=== PATIENT | female | born 1965 | race American Indian/Alaskan Native ===

== ENCOUNTER 2016-11-12 07:05 | Emergency (ER) | payer OTHER ==
[2016-11-12 07:13] VITALS: BP 173/93; PULSE 97; RESP 18; TEMP 97.7; O2SAT 100
--- NOTE | 2016-11-12 07:59 | C.PDOC ---
History Of Present Illness 50-year-old female, presents to the emergency department w/ complaints of non- traumatic right-lower back pain that started a few days ago. Denies nausea/ vomiting, numbness/weakness, tingling, bowel/bladder incontinence, symptoms, or any other associated symptoms. No other complaints at this time. Time Seen by Provider: 11/12/16 07:17 Chief Complaint (Nursing): Back Pain History Per: Patient History/Exam Limitations: no limitations Past Medical History Reviewed: Historical Data, Nursing Documentation, Vital Signs Vital Signs: Last Vital Signs Temp 97.7 F 11/12/16 07:12 Pulse 97 H 11/12/16 07:12 Resp 18 11/12/16 07:12 BP 173/93 H 11/12/16 07:12 Pulse Ox 100 11/12/16 10:41 - Medical History PMH: Back Problems Denies: Asthma, HTN Family History: States: Unknown Family Hx - Social History Hx Alcohol Use: No Hx Substance Use: No - Immunization History Hx Tetanus Toxoid Vaccination: Yes Hx Influenza Vaccination: Yes Hx Pneumococcal Vaccination: Yes Review Of Systems Except As Marked, All Systems Reviewed And Found Negative. Constitutional: Negative for: Fever, Chills Cardiovascular: Negative for: Chest Pain Respiratory: Negative for: Shortness of Breath Gastrointestinal: Negative for: Vomiting Musculoskeletal: Positive for: Back Pain (R LOWER). Negative for: Leg Pain Skin: Negative for: Rash Neurological: Negative for: Weakness, Numbness, Headache, Dizziness Physical Exam - Physical Exam Appears: Non-toxic, No Acute Distress Skin: Warm, Dry, No Rash Head: Atraumatic, Normacephalic Eye(s): bilateral: Normal Inspection, PERRL, EOMI Nose: Normal Oral Mucosa: Moist Lips: Normal Appearing Neck: Normal ROM, Supple Chest: Symmetrical Cardiovascular: Rhythm Regular, No Friction Rub, No Murmur Respiratory: Normal Breath Sounds, No Accessory Muscle Use, No Rales, No Rhonchi , No Stridor, No Wheezing Gastrointestinal/Abdominal: Soft, No Tenderness Back: No Vertebral Tenderness (no midline tendernessx), Paraspinal Tenderness ( right, lumbar) Extremity: Normal ROM, No Tenderness, No Swelling Neurological/Psych: Oriented x3, Normal Speech, Normal Cranial Nerves, Normal Motor, Normal Sensation Gait: Steady ED Course And Treatment O2 Sat by Pulse Oximetry: 100 (on RA) Pulse Ox Interpretation: Normal Disposition - Disposition Referrals: [facility] [Outside] Disposition: HOME/ ROUTINE Disposition Time: 08:30 Condition: GOOD Additional Instructions: Follow up with the medical doctor within 1-2 days. Return if worsened. Prescriptions: traMADol [Ultram] 50 mg PO Q6 PRN #20 tab PRN Reason: Pain predniSONE [Prednisone] 20 mg PO BID #10 tab Instructions: Acute Low Back Pain (ED) - POA Present On Arrival: None - Clinical Impression Clinical Impression: Low back pain - Scribe Statement The provider has reviewed the documentation as recorded by the Scribe Nia Amin All medical record entries made by the Roxaneibe were at my direction and personally dictated by me. I have reviewed the chart and agree that the record accurately reflects my personal performance of the history, physical exam, medical decision making, and the department course for this patient. I have also personally directed, reviewed, and agree with the discharge instructions and disposition.
== END 2016-11-12 08:10 | disposition home or self-care (01) ==
LOC: C.ER 07:05
DX: M54.5 Low back pain (principal)

== ENCOUNTER 2016-12-17 16:28 | Emergency (ER) | payer OTHER ==
[2016-12-17 16:38] VITALS: BMI 23.3
[2016-12-17 16:42] VITALS: BP 167/90; PULSE 86; RESP 18; TEMP 98.7; O2SAT 100
--- NOTE | 2016-12-17 17:27 | C.PDOC ---
History Of Present Illness The patient, a 51 y/o female w/o significant PMHx presents to the ED for evaluation of right hand pain which gradually developed over the past 7 days. Patient states her pain is localized over her Right thumb, worse with movement. Patient admits she has been typing a lot. Patient denies direct injury/trauma to the affected area, redness, sensorivascular deficits, or extremity numbness/ weakness. Ambulate to ED for evaluation, not in any apparent distress. Time Seen by Provider: 12/17/16 16:49 Chief Complaint (Nursing): Finger,Hand,&Wrist History Per: Patient History/Exam Limitations: no limitations Onset/Duration Of Symptoms: Days Current Symptoms Are (Timing): Still Present Quality: "Pain" Exacerbating Factor(s): Movement Additional History Per: Patient Past Medical History Reviewed: Historical Data, Nursing Documentation, Vital Signs Vital Signs: Last Vital Signs Temp 98.7 F 12/17/16 16:39 Pulse 86 12/17/16 16:39 Resp 18 12/17/16 16:39 BP 167/90 H 12/17/16 16:39 Pulse Ox 100 12/17/16 20:35 - Medical History PMH: Back Problems Denies: Asthma, HTN Surgical History: No Surg Hx Family History: States: Unknown Family Hx - Social History Hx Alcohol Use: No Hx Substance Use: No - Immunization History Hx Tetanus Toxoid Vaccination: Yes Hx Influenza Vaccination: No Hx Pneumococcal Vaccination: No Review Of Systems Except As Marked, All Systems Reviewed And Found Negative. Constitutional: Negative for: Fever, Chills ENT: Negative for: Throat Pain Cardiovascular: Negative for: Chest Pain Respiratory: Negative for: Cough, Shortness of Breath Musculoskeletal: Positive for: Hand Pain (right, over thumb ) Neurological: Negative for: Weakness, Numbness Physical Exam - Physical Exam Appears: Well, Non-toxic, No Acute Distress Skin: Normal Color, Warm, No Rash, No Ecchymosis Oral Mucosa: Moist Neck: Supple Extremity: No Normal ROM (limited to Right 1st MCPJ flexion secondary to mild discomfort. ), Tenderness (over right 1st MCP joint extend along policis longus ligament.), Capillary Refill (less than 2 seconds ), No Deformity, Swelling ( nonspecific ) Neurological/Psych: Oriented x3, Normal Speech, Normal Cognition, Normal Motor, Normal Sensation, Normal Reflexes Gait: Steady ED Course And Treatment O2 Sat by Pulse Oximetry: 100 (on RA) Pulse Ox Interpretation: Normal - Other Rad Right hand X-Ray: Interpreted by Me, Viewed By Me Interpretation: (+) mod DJD, osteopenia. NO acute fx Progress Note: Right hand XR ordered and reviewed. On re-eavl, pt is afebrile, hemodynamicaly stable. NOn-toxic. RUE: exam c/w thumb sprain. NO edema, no erythema, no deformity. No neurovascular deficits. Orthopedic Time Performed: 17:25 Time Out: Side verified, Site verified, Patient ID confirmed Procedure: Splint Type: Thumb spica Location: Right, Finger Consent obtained: Verbal Performed by: Mid-level Provider Diagnosis: Sprain Disposition Counseled Patient/Family Regarding: Studies Performed, Diagnosis, Need For Followup - Disposition Referrals: Umberto Flynn MD [Staff Provider] - Disposition: HOME/ ROUTINE Disposition Time: 17:25 Condition: STABLE Additional Instructions: Splint Take medication as prescribed Follow up with PMD, hand specialist in 2-3 days for re-evaluation. Return to ED if any worsening or new changes. Prescriptions: traMADol [Ultram] 50 mg PO TID #10 tab Instructions: Skier's Thumb (ED), Finger Sprain (ED) - Clinical Impression Clinical Impression: Finger sprain - PA / REGIONAL OPERATIONS MANAGER / Resident Statement MD/DO has reviewed & agrees with the documentation as recorded. - Scribe Statement The provider has reviewed the documentation as recorded by the Scribe (Lashell Mack) All medical record entries made by the Scribe were at my direction and personally dictated by me. I have reviewed the chart and agree that the record accurately reflects my personal performance of the history, physical exam, medical decision making, and the department course for this patient. I have also personally directed, reviewed, and agree with the discharge instructions and disposition.
--- NOTE | 2016-12-18 10:50 | RAD ---
PROCEDURE: Right Hand Radiographs. HISTORY: injury COMPARISON: None. FINDINGS: BONES: Normal. No fracture. JOINTS: Mild osteoarthritic changes. SOFT TISSUES: Normal. OTHER FINDINGS: None. IMPRESSION: No acute findings related to/accounting for the clinical presentation.
== END 2016-12-17 17:29 | disposition home or self-care (01) ==
LOC: C.ER 16:28
DX: S63.601A Unspecified sprain of right thumb, initial encounter (principal); X50.0XXA Overexertion from strenuous movement or load, initial encounter; Y93.89 Activity, other specified; Y92.89 Other specified places as the place of occurrence of the external cause